=== PATIENT | female | born 1985 | race Caucasian/White ===

== ENCOUNTER 2023-11-20 18:09 | Emergency (ER) | payer OTHER ==
[~2023-11-20] VITALS: Ht 157.5 cm; Wt 59.0 kg
[2023-11-20 18:39] VITALS: BP_SYST 130; PULSE 72; RESP 15; TEMP 97.9; O2SAT 99
[2023-11-20 19:31] LABS: BILIRUBIN,URINE NEGATIVE (NEGATIVE); COLOR,URINE YELLOW (YELLOW); GLUCOSE,URINE NEGATIVE (NEGATIVE); KETONES,URINE TRACE (NEGATIVE); LEUKOCYTE ESTERASE ,URINE NEGATIVE (NEGATIVE); NITRITE, URINE NEGATIVE (NEGATIVE); PROTEIN URINE NEGATIVE (NEGATIVE); UROBILINOGEN,URINE 0.2 (0.2-1.0)
[2023-11-20 19:35] LABS: BLOOD, URINE TRACE (NEGATIVE); CLARITY/URINE HAZY (CLEAR)
[2023-11-20 19:40] LABS: BACTERIA,URINE MODERATE /HPF (None Seen); MUCUS,URINE 3+ /LPF (None Seen); RBC,URINE 0-3 /HPF (0-3)
[2023-11-20 19:50] VITALS: BP_SYST 130; PULSE 72; RESP 15; TEMP 97.9; O2SAT 99
== END 2023-11-20 19:50 | disposition home or self-care (01) ==
LOC: SED 18:09
DX: R10.9 Unspecified abdominal pain (principal); R07.89 Other chest pain; R11.0 Nausea; R03.0 Elevated blood-pressure reading, without diagnosis of hypertension; Z90.710 Acquired absence of both cervix and uterus; Z88.1 Allergy status to other antibiotic agents; Z88.0 Allergy status to penicillin
CPT/HCPCS: 81000; 81001; 81015; 81025; 87086; 99283